=== PATIENT | female | born 1980 | race Caucasian/White ===

== ENCOUNTER 2017-01-03 17:43 | Emergency (ER) | payer SELFPAY ==
[2017-01-03] MEDS ORDERED: Ondansetron TAB* 4 MG PO ONE (19:35)
[2017-01-03 20:16] LABS: Hematocrit 43 % (35-47); Hemoglobin 14.5 g/dl (12.0-16.0); Mean Corpuscular HGB Conc 34 g/dl (31-36); Mean Corpuscular Hemoglobin 33 pg (27-31); Mean Corpuscular Volume 98 fL (80-97); Mean Platelet Volume 8 um3 (7.4-10.4); Red Blood Count 4.34 10^6/ul (4.0-5.4); Red Cell Distribution Width 14 % (10.5-15); White Blood Count 12.9 10^3/ul (3.5-10.8)
[2017-01-03 20:32] LABS: ALT 23 U/L (7-52); AST 25 U/L (13-39); Alkaline Phosphatase 75 U/L (34-104); Anion Gap 9 mmol/L (2-11); BUN/Creatinine Ratio 25.8 (8-20); Blood Urea Nitrogen 16 mg/dL (6-24); C Reactive Protein 1.06 mg/L (< 5.00); CO2 Carbon Dioxide 22 mmol/L (22-32); Calcium 9.6 mg/dL (8.6-10.3); Chloride 103 mmol/L (101-111); EGFR African American 140.9 (>60); EGFR Non-African American 109.5 (>60); Globulin 3.5 g/dL (2-4); Glucose 81 mg/dL (70-100); Lipase 43 U/L (11.0-82.0); Potassium 3.5 mmol/L (3.5-5.0); Sodium 134 mmol/L (133-145); Total Protein 7.5 g/dL (6.4-8.9)
--- NOTE | 2017-01-03 21:07 | RAD ---
Indication: Right lower quadrant pain. Graded compression sonography of the right lower quadrant was performed utilizing a high frequency linear transducer. A trace amount of free fluid is noted in the right lower quadrant. An appendix is not visualized. IMPRESSION: Trace free fluid in the right lower quadrant. Appendix not visualized.
--- NOTE | 2017-01-03 21:08 | RAD ---
Indication: Right upper quadrant pain. Real-time sonography of the right upper quadrant was performed. The liver is enlarged measuring 20 cm in length. No focal lesions or intrahepatic ductal dilatation is noted. Gallbladder demonstrates no gallstones, pericholecystic fluid or wall thickening. The right kidney measures 10.6 x 5.7 x 5.2 cm with no hydronephrosis. The visualized pancreas is unremarkable. IMPRESSION: Enlarged liver. No evidence of cholelithiasis or biliary duct dilatation.
[2017-01-03 21:45] LABS: Urine Bacteria Absent (Absent); Urine Bilirubin Negative (Negative); Urine Glucose Negative (Negative); Urine Nitrite Negative (Negative)
--- NOTE | 2017-01-03 22:09 | ED ---
Ace Gudino Salem, scribed for Daljit Cutler on 01/03/17 at 1942 . Abdominal Pain/Female - HPI Summary HPI Summary: Patient is a 36 y/o female who presents to the ED with nausea for 4.5 weeks. She reports vomiting, diarrhea, abd pain, but denies fever or CP. Sx are not alleviated or aggravated with anything. - History of Current Complaint Chief Complaint: EDNauseaVomitDiarrh Stated Complaint: VOMITING 4 WEEKS Time Seen by Provider: 01/03/17 19:25 Hx Obtained From: Patient Onset/Duration: Gradual Onset, Lasting Weeks Severity Initially: Moderate Severity Currently: Moderate Aggravating Factor(s): Nothing Alleviating Factor(s): Nothing Associated Signs and Symptoms: Positive: Nausea, Vomiting, Diarrhea, Other: - Abd pain.. Negative: Fever, Chest Pain Allergies/Adverse Reactions: Allergies Allergy/AdvReac Type Severity Reaction Status Date / Time No Known Allergies Allergy Verified 01/03/17 17:48 PMH/Surg Hx/FS Hx/Imm Hx Endocrine/Hematology History: Denies: Hx Diabetes Infectious Disease History: No Infectious Disease History: Denies: Traveled Outside the [place] in Last 30 Days - Family History Known Family History: Negative: Cardiac Disease, Diabetes - Social History Alcohol Use: Weekly Alcohol Amount: 5 days per week, a couple drinks Substance Use Type: Reports: None Hx Tobacco Use: Yes Smoking Status (MU): Light Every Day Tobacco Smoker Review of Systems Negative: Fever Negative: Chest Pain Positive: Abdominal Pain, Vomiting, Diarrhea, Nausea All Other Systems Reviewed And Are Negative: Yes Physical Exam Triage Information Reviewed: Yes Vital Signs On Initial Exam: Initial Vitals Temp Pulse Resp BP Pulse Ox 98.7 F 93 18 118/78 97 01/03/17 17:48 01/03/17 17:48 01/03/17 17:48 01/03/17 17:48 01/03/17 17:48 Vital Signs Reviewed: Yes Appearance: Positive: Well-Appearing, No Pain Distress Skin: Positive: Warm, Skin Color Reflects Adequate Perfusion, Dry Head/Face: Positive: Normal Head/Face Inspection Eyes: Positive: EOMI, TERRY Neck: Positive: Supple, Nontender Respiratory/Lung Sounds: Positive: Clear to Auscultation, Breath Sounds Present Cardiovascular: Positive: RRR, Pulses are Symmetrical in both Upper and Lower Extremities Abdomen Description: Positive: Nontender, Soft Bowel Sounds: Positive: Present Musculoskeletal: Positive: Normal, Strength/ROM Intact Neurological: Positive: Normal, Sensory/Motor Intact, Alert, Oriented to Person Place, Time - [place] Coma Scale Coma Scale Total: 15 Diagnostics - Vital Signs Vital Signs Temp Pulse Resp BP Pulse Ox 01/03/17 19:00 84 110/67 97 01/03/17 18:42 91 97 01/03/17 18:40 112/69 01/03/17 17:48 98.7 F 93 18 118/78 97 - Laboratory Result Diagrams: 01/03/17 20:05 01/03/17 20:05 Lab Statement: Any lab studies that have been ordered have been reviewed, and results considered in the medical decision making process. - Ultrasound No standard instances Ultrasound Interpretation Completed By: Radiologist - ABD US IMPRESSION: Trace free fluid in the right lower quadrant. Appendix not visualized. GALLBLADDER IMPRESSION: Enlarged liver. No evidence of cholelithiasis or biliary duct dilatation. - EKG 2000 EKG Interpretation: NSR @ 81 bpm. No acute changes. Re-Evaluation - Re-Evaluation First Eval Re-Evaluation Time: 22:05 Comment: Informed pt of results. Abdominal Pain Fem Course/Dx - Diagnoses Provider Diagnoses: Nonspecific abdominal pain Discharge - Discharge Plan Condition: Stable Disposition: HOME Prescriptions: Pantoprazole Sodium [Protonix] 40 mg PO ONCE #30 tab Patient Education Materials: Pantoprazole (By mouth), Abdominal Pain (ED) Referrals: [facility] [place] [place] [Outside] Additional Instructions: Follow up with [facility] [place] 3 days. The documentation as recorded by the Ace dsouza Salem accurately reflects the service I personally performed and the decisions made by Omayra leyva Emmanuel.
[2017-01-03 22:28] VITALS: BP 107/62
== END 2017-01-03 22:27 | disposition home or self-care (01) ==
LOC: ED 17:43
DX: R10.9 Unspecified abdominal pain (principal); R16.0 Hepatomegaly, not elsewhere classified; F17.290 Nicotine dependence, other tobacco product, uncomplicated
CPT/HCPCS: 36415; 76705; 80053; 81003; 81015; 83690; 84484; 84702; 85025; 86140; 93005; 99283; A9270-GY

== ENCOUNTER 2017-05-20 23:09 | Emergency (ER) | payer SELFPAY ==
[2017-05-21] MEDS ORDERED: NS 0.9% 1000 ML* 1,000 ML IV ONE (00:22)
[2017-05-21] MEDS ORDERED: Ondansetron INJ* 2 MG/ML VIAL IV ONE (00:22)
--- NOTE | 2017-05-21 00:37 | ED ---
frantz Gudino Timothy, scribed for Ochoa Serrano MD on 05/21/17 at 0025 . GI/ HPI - HPI Summary HPI Summary: Christine Carey is a 36 yo female presenting to [facility] with 9/10 stabbing right flank pain radiating to her back and upper quadrants of her abd for the past 5 months, worse in the past few days. She also states she feels SOB when laying down, and has experience N/V. She presents tonight because she can't sleep. Her MHx includes x2, tobacco use. - History of Current Complaint Chief Complaint: EDAbdPain Time Seen by Provider: 05/21/17 00:19 Stated Complaint: RIGHT FLANK PAIN Hx Obtained From: Patient Onset/Duration: Started Weeks Ago, Still Present, Worse Since - past few days Timing: Constant Severity: Moderate Current Severity: Moderate Pain Intensity: 9 Location of Pain: RUQ, LUQ, Flank - right Pain Characteristics: Other: - stabbing Pain Radiates to: Back Associated Signs and Symptoms: Positive: Back Pain, Nausea, Vomiting, Flank Pain - right, Abdominal Pain, Other: - SOB - Allergy/Home Medications Allergies/Adverse Reactions: Allergies Allergy/AdvReac Type Severity Reaction Status Date / Time No Known Allergies Allergy Verified 01/03/17 17:48 PMH/Surg Hx/FS Hx/Imm Hx Endocrine/Hematology History: Denies: Hx Diabetes Infectious Disease History: Denies: Traveled Outside the [place] in Last 30 Days - Family History Known Family History: Negative: Cardiac Disease, Hypertension, Diabetes - Social History Alcohol Use: Weekly Alcohol Amount: 5 days per week, a couple drinks Substance Use Type: Reports: None Hx Tobacco Use: Yes Smoking Status (MU): Light Every Day Tobacco Smoker Review of Systems Constitutional: Negative Eyes: Negative ENT: Negative Cardiovascular: Negative Positive: Shortness Of Breath Positive: Abdominal Pain, Vomiting, Nausea Positive: flank pain Positive: Other - back pain Skin: Negative Neurological: Negative Psychological: Normal All Other Systems Reviewed And Are Negative: Yes Physical Exam Triage Information Reviewed: Yes Vital Signs On Initial Exam: Initial Vitals Temp Pulse Resp BP Pulse Ox 99.1 F 117 18 122/83 97 05/20/17 23:14 05/20/17 23:14 05/20/17 23:14 05/20/17 23:14 05/20/17 23:14 Vital Signs Reviewed: Yes Appearance: Positive: Well-Appearing, Pain Distress - mild discomfort Skin: Positive: Warm Eyes: Positive: TERRY ENT: Positive: Hearing grossly normal Neck: Positive: Supple Respiratory/Lung Sounds: Positive: Clear to Auscultation, Breath Sounds Present Cardiovascular: Positive: RRR Abdomen Description: Positive: No Organomegaly, Soft, Other: - mild deep rt lower abd tenderness. Negative: Distended, Guarding Bowel Sounds: Positive: Present Musculoskeletal: Positive: Strength/ROM Intact Neurological: Positive: Alert, Oriented to Person Place, Time Diagnostics - Vital Signs Vital Signs Temp Pulse Resp BP Pulse Ox 05/20/17 23:14 99.1 F 117 18 122/83 97 - Laboratory Result Diagrams: 05/21/17 00:35 05/21/17 00:35 Lab Statement: Any lab studies that have been ordered have been reviewed, and results considered in the medical decision making process. - CT A/P CT Interpretation: Positive (See Comments) - Impression: 4.3cm slightly complex right ovarian cyst with small amount of free fluid, possibly due to partial cyst collapse. 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 Pt medication list reviewed this visit. In the ED course she received IV fluids and zofran for nausea control. Her CT A/P suggests 4.3cm slightly complex right ovarian cyst with small amount of free fluid possibly due to partial cyst collapse. After clinical examination and review of her lab and imaging studies, she will be discharged home with right ovarian cyst with appropriate instructions. - Diagnoses Differential Diagnoses - Female: Ovarian Cyst Provider Diagnoses: Right ovarian cyst Discharge - Discharge Plan Condition: Improved Disposition: HOME Prescriptions: Naproxen TAB* [Naprosyn 250 mg TAB*] 500 mg PO BID #30 tab Patient Education Materials: Ovarian Cyst (ED) Referrals: [facility] [place]] - 2 Days Bee Trevino MD [Medical Doctor] - 2 Days Additional Instructions: Please follow up with the primary care physician provided and Dr. Trevino (OB/ [employer]) regarding your visit to the emergency department today. Return to the emergency department with any new or recurring symptoms. The documentation as recorded by the frantz dsouza Timothy accurately reflects the service I personally performed and the decisions made by me, Ochoa Serrano MD.
[2017-05-21 00:52] LABS: Hematocrit 44 % (35-47); Hemoglobin 15.1 g/dl (12.0-16.0); Mean Corpuscular HGB Conc 34 g/dl (31-36); Mean Corpuscular Hemoglobin 33 pg (27-31); Mean Corpuscular Volume 97 fL (80-97); Mean Platelet Volume 9 um3 (7.4-10.4); Red Blood Count 4.55 10^6/ul (4.0-5.4); Red Cell Distribution Width 13 % (10.5-15); White Blood Count 18.2 10^3/ul (3.5-10.8)
[2017-05-21 01:07] LABS: Urine Bilirubin Negative (Negative); Urine Glucose Negative (Negative); Urine Nitrite Negative (Negative)
[2017-05-21 01:09] LABS: ALT 25 U/L (7-52); AST 19 U/L (13-39); Albumin 4.3 g/dL (3.2-5.2); Alkaline Phosphatase 80 U/L (34-104); Anion Gap 9 mmol/L (2-11); BUN/Creatinine Ratio 16.2 (8-20); Blood Urea Nitrogen 12 mg/dL (6-24); C Reactive Protein 2.15 mg/L (< 5.00); CO2 Carbon Dioxide 22 mmol/L (22-32); Calcium 9.5 mg/dL (8.6-10.3); Chloride 105 mmol/L (101-111); EGFR African American 114.9 (>60); EGFR Non-African American 89.3 (>60); Globulin 3.5 g/dL (2-4); Glucose 105 mg/dL (70-100); Lipase 59 U/L (11.0-82.0); Potassium 3.9 mmol/L (3.5-5.0); Sodium 136 mmol/L (133-145); Total Protein 7.8 g/dL (6.4-8.9)
[2017-05-21] MEDS ORDERED: Iohexol 300* (CONTRAST) 10 ML SDV IV ONE (02:32)
[2017-05-21 03:50] VITALS: BP 129/79
--- NOTE | 2017-05-21 07:56 | RAD ---
CLINICAL HISTORY: Abdominal pain COMPARISON: None TECHNIQUE: Multiple contiguous axial CT scans were obtained of the abdomen and pelvis after the administration of intravenous contrast. Coronal and sagittal multiplanar reformations are submitted for review. Oral contrast was administered. Delayed images were obtained through the abdomen and pelvis. FINDINGS: LUNG BASES: The lung bases are clear. LIVER: The liver is mildly enlarged measuring up to 19.3 cm. BILE DUCTS: There is no intrahepatic or extrahepatic biliary dilatation. GALLBLADDER: The gallbladder is normal, without pericholecystic inflammatory change. PANCREAS: The pancreas is normal, without mass or ductal dilatation. SPLEEN: Normal in size and appearance. UPPER GI TRACT: Evaluation of the gastrointestinal tract is limited by incomplete gastric distention. The upper GI tract is unremarkable. SMALL BOWEL AND MESENTERY: The small bowel is normal in contour, course, and caliber. There is no obstruction or dilatation. COLON: The colon is normal in contour, course, caliber. There is no pericolonic inflammatory change. There is a tubular, vermiform, hollow viscus that is blind ending, and originates from the cecum, consistent with a normal appendix. There is no periappendiceal inflammatory change. This is best seen on axial image 51 ADRENALS: Normal bilaterally. KIDNEYS: The kidneys are normal in shape, size, contour, and axis. There is no hydronephrosis or nephrolithiasis. BLADDER: The bladder is smooth in contour. PELVIC ORGANS: There is a 4.3 cm right ovarian cyst. This is minimally complicated. The pelvic organs otherwise unremarkable. There is a small amount free fluid within the cul-de-sac. AORTA: The aorta is normal. IVC: Unremarkable LYMPH NODES: There is no lymphadenopathy by size criteria. ABDOMINAL WALL: There is no evidence for abdominal wall hernia. BONES AND SOFT TISSUES: There are minimal degenerative changes. OTHER: None IMPRESSION: 1. MINIMALLY COMPLICATED 4.3 CM RIGHT OVARIAN CYST WITH A SMALL AMOUNT OF FLUID WITHIN THE PELVIC CUL-DE-SAC. 2. NORMAL APPENDIX. 3. MILD HEPATOMEGALY.
== END 2017-05-21 03:50 | disposition home or self-care (01) ==
LOC: ED 23:09
DX: N83.201 Unspecified ovarian cyst, right side (principal); R11.2 Nausea with vomiting, unspecified; R06.02 Shortness of breath; Z32.02 Encounter for pregnancy test, result negative; F17.210 Nicotine dependence, cigarettes, uncomplicated
CPT/HCPCS: 36415; 74177; 80053; 81003; 81015; 83605; 83690; 83735; 84702; 85025; 86140; 87086; 96361; 96374; 99283; J2405; Q9967